=== PATIENT | male | born 2005 | race Two or more races ===

== ENCOUNTER → 2025-03-02 | Outpatient (CLI) | payer MEDICAID, SELFPAY ==
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
== END | disposition home or self-care (01) ==
LOC: CDIM 11:08
PROVIDERS: PCP Family Medicine
DX: M79.642 Pain in left hand (principal); S60.455 Superficial foreign body of left ring finger; X58.XXXS Exposure to other specified factors, sequela
CPT/HCPCS: 73130